=== PATIENT | male | born 1935 | race Caucasian/White ===

== ENCOUNTER 2017-02-28 07:32 | Day surgery (SDC) | payer OTHER ==
[~2017-02-28] VITALS: Ht 171.4 cm; Wt 85.0 kg
[2017-02-28] VITALS (7 sets, daily range): BP systolic 154–179; BP diastolic 69–83; PULSE 55–72; RESP 17–19; TEMP 97.4–98.2; O2SAT 92–97
[~2017-02-28 07:32] MED LIST: AMLO5TAB22 PO; BENA40TA PO; CO Q100C9 PO; DOXA1 PO; FOLI5CAP PO; GLUCTAB PO; HYDR25TA35 PO; LEVO100T4 PO; OCUVTAB4 PO; POTA10TA2 PO; SIMV20 PO; TAB-TAB PO; VITATAB11 PO
[2017-02-28] MEDS ORDERED: METF1000 PO (07:49)
[2017-02-28] MEDS ORDERED: LABE300T PO (07:49)
[2017-02-28] MEDS ORDERED: HYDR-3799 PO (07:50)
[2017-02-28] MEDS ORDERED: SODIUM CHLOR 0.9% 1000 ML INJ 1,000 ML IV SCH (08:00)
[2017-02-28 08:17] LABS: AUTOMATED NEUTROPHIL # 3.3 TH/MM3 (1.8-7.7); BASOPHIL % 0.3 % (0.0-2.0); EOSINOPHIL # 0.2 TH/MM3 (0-0.4); HEMATOCRIT 37.9 % (39.0-51.0); HEMO FLAGS DIFF FINAL; LYMPH % 19.8 % (9.0-44.0); MEAN CELL VOLUME 84.2 FL (80.0-100.0); MEAN CORPUSCULAR HEMOGLOBIN 28.3 PG (27.0-34.0); MEAN CORPUSCULAR HGB CONC 33.6 % (32.0-36.0); MONO % 9.3 % (0.0-8.0); NEUT % 66.6 % (16.0-70.0); PLATELET COUNT 194 TH/MM3 (150-450); RED CELL DISTRIBUTION WIDTH 15.4 % (11.6-17.2); WHITE BLOOD COUNT 4.9 TH/MM3 (4.0-11.0)
[2017-02-28] MEDS ORDERED: BENA40TA PO (08:18)
[2017-02-28] MEDS ORDERED: AMLO5TAB2 PO (08:19)
[2017-02-28] MEDS ORDERED: LEVO100T5 PO (08:20)
[2017-02-28] MEDS ORDERED: HYDR25TA5 PO (08:20)
[2017-02-28] MEDS ORDERED: SIMV20TA PO (08:21)
[2017-02-28] MEDS ORDERED: DOXA1TAB34 PO (08:21)
[2017-02-28] MEDS ORDERED: RANI300T PO (08:22)
[2017-02-28] MEDS ORDERED: FOLI800T PO (08:23)
[2017-02-28] MEDS ORDERED: POTA10CA PO (08:24)
[2017-02-28] MEDS ORDERED: MULTTAB67 PO (08:25)
[2017-02-28] MEDS ORDERED: CO Q100C9 PO (08:26)
[2017-02-28] MEDS ORDERED: OCUVTAB4 PO (08:27)
[2017-02-28] MEDS ORDERED: CHOL1TAB42 PO (08:29)
[2017-02-28] MEDS ORDERED: VITA10002 PO (08:30)
[2017-02-28] MEDS ORDERED: CLAR10CA3 PO (08:31)
[2017-02-28] MEDS ORDERED: LIDOCAINE 1%/EPINEPHrine 1:100,000 SOLN 20 ML VIAL ONE (09:06)
[2017-02-28] MEDS ORDERED: MIDAZOLAM HCL 2 MG/2 ML VIAL ONE ×2 (09:27→09:29)
[2017-02-28] MEDS ORDERED: fentaNYL CITRATE 250 MCG/5 ML AMP ONE (09:27)
[2017-02-28] MEDS ORDERED: SODIUM CHLORIDE 0.9% FLUSH 10 ML FLUSH IV FLUSH PRN (09:30)
--- NOTE | 2017-02-28 12:42 | RADRPT ---
EXAM DATE/TIME: 02/28/2017 09:44 [facility] COMPARISON: No previous studies available for comparison. INDICATIONS : Right lung mass SEDATION TIME: 15 minutes BIOPSY SITE: Right lung MEDICATION(S): 1.) 2 mg midazolam (Versed) IV 2.) 100 mcg fentanyl (Sublimaze) IV DEVICE(S): 1.) 18 gauge Arrington blunt needle 2.) 20 gauge Temno core biopsy needle MEDICAL HISTORY : Diabetes mellitus type 2. Carcinoma, lung. Melanoma SURGICAL HISTORY : Lobectomy. ENCOUNTER: Initial ACUITY: 1 day PAIN SCORE: 0/10 LOCATION: Right chest A total of three core specimen(s) were obtained and sent to the laboratory for pathologic evaluation. PROCEDURE: 1. CT guided lung biopsy. Prior to the procedure informed consent was obtained. Any appropriate prior imaging studies were rev iewed. Using automated exposure control and adjustment of the mA and/or kV according to patient size, radiation dose was kept as low as reasonably achievable to obtain optimal diagnostic quality images. DICOM format image data is available electronically for review and comparison. The site was prepped in a sterile fashion. Full sterile technique was used, including cap, mask, kong rile gloves and gown and a large sterile sheet. Hand hygiene and 2% chlorhexidine and/or betadine/al cohol prep was utilized per protocol for cutaneous antisepsis. The skin and subcutaneous tissues wer e infiltrated with local anesthetic solution. Under CT guidance an 18 gauge blunt needle was placed down into the PET positive area right lung. 3 cores were obtained. 2 slides were submitted. Follow-up CT scan reveals no pneumothorax. Conscious sedation was performed with the prescribed dosages and duration as above in the presence of an independent trained radiology nurse to assist in the monitoring of the patient. EKG and oximetry remained stable throughout the procedure. The patient tolerated the procedure well and there were no complications. The patient was sent to Radiology Outpatient Unit in stable condition. CONCLUSION: Uncomplicated CT guided biopsy. Weston Esparza MD FACR on February 28, 2017 at 12:38 Board Certified Radiologist. This report was verified electronically.
--- NOTE | 2017-02-28 13:35 | RADRPT ---
EXAM DATE/TIME: 02/28/2017 12:47 [facility] COMPARISON: No previous studies available for comparison. INDICATIONS : Status post right lung biopsy. MEDICAL HISTORY : Carcinoma, lung. SURGICAL HISTORY : Right lung surgery, lobectomy for lung CA. Port placed. ENCOUNTER: Initial ACUITY: 1 day PAIN SCORE: 0/10 LOCATION: Right chest FINDINGS: There is no pneumothorax. Side changes and fluid remaining in the right base. The left lung is judy r. The heart is minimally enlarged. CONCLUSION: There is no pneumothorax following biopsy. Weston Esparza MD FACR on February 28, 2017 at 13:32 Board Certified Radiologist. This report was verified electronically.
== END 2017-02-28 14:20 | disposition home or self-care (01) ==
LOC: HRAD 07:32 → HRIP 07:32 → HRAD 14:20
PROVIDERS: ATTEND Internal Medicine Hematology & Oncology
DX: R91.8 Other nonspecific abnormal finding of lung field (principal); E11.9 Type 2 diabetes mellitus without complications; Z85.118 Personal history of other malignant neoplasm of bronchus and lung
CPT/HCPCS: 32405; 71010; 77012; 85025; 87015; 87070; 87102; 87116; 87205; 87206; 88305; 88333; J2250; J3010; J7030

== ENCOUNTER 2017-03-09 07:36 | Day surgery (SDC) | payer OTHER ==
[~2017-03-09] VITALS: Ht 176.5 cm; Wt 86.4 kg
[2017-03-09] VITALS (7 sets, daily range): BP systolic 170–185; BP diastolic 75–87; PULSE 63–72; RESP 17–19; TEMP 97.8–98.3; O2SAT 93–94
[~2017-03-09 07:36] MED LIST changes: +AMLO5TAB2 PO; -AMLO5TAB22 PO; +CHOL1TAB42 PO; +CLAR10CA3 PO; -DOXA1 PO; +DOXA1TAB34 PO; -FOLI5CAP PO; +FOLI800T PO; -GLUCTAB PO; +HYDR-3799 PO; -HYDR25TA35 PO; +HYDR25TA5 PO; +LABE300T PO; -LEVO100T4 PO; +LEVO100T5 PO; +METF1000 PO; +MULTTAB67 PO; +POTA10CA PO; -POTA10TA2 PO; +RANI300T PO; -SIMV20 PO; +SIMV20TA PO; -TAB-TAB PO; +VITA10002 PO
[2017-03-09] MEDS ORDERED: SODIUM CHLOR 0.9% 1000 ML IV SCH (08:00)
[2017-03-09] MEDS ORDERED: IMPLANTED VASCULAR ACCESS DEVICE/PORT - SODIUM CHLORIDE FLUSH IV FLUSH SCH (08:00)
[2017-03-09] MEDS ORDERED: IMPLANTED VASCULAR ACCESS DEVICE/PORT - SODIUM CHLORIDE FLUSH PRN IV FLUSH (08:00)
[2017-03-09] MEDS ORDERED: MELO-1 PO (08:01)
[2017-03-09] MEDS ORDERED: MONT10TA4 PO (08:01)
[2017-03-09] MEDS ORDERED: VITA10002 PO (08:01)
[2017-03-09] MEDS ORDERED: ASPI81CH CHEW (08:01)
[2017-03-09] MEDS ORDERED: LIDOCAINE HCL 1% 20 ML VIAL ONE (08:08)
[2017-03-09 08:30] LABS: APTT (PATIENT) 28.8 SEC (24.3-30.1); INTERNATIONAL NORMALIZED RATIO 0.9 RATIO; PROTHROMBIN TIME - PATIENT 10.1 SEC (9.8-11.6)
[2017-03-09] MEDS ORDERED: MIDAZOLAM HCL 2 MG/2 ML VIAL ONE (08:41)
--- NOTE | 2017-03-09 10:43 | RADRPT ---
EXAM DATE/TIME: 03/09/2017 08:52 [facility] COMPARISON: CT NEEDLE BIOPSY LUNG, RIGHT, February 28, 2017, 9:44. INDICATIONS : Right lung mass. SEDATION TIME: 30 minutes BIOPSY SITE: Right chest. MEDICATION(S): 1.) 1.5 mg midazolam (Versed) IV 2.) 50 mcg fentanyl (Sublimaze) IV DEVICE(S): 1.) 18 gauge Arrington blunt needle 2.) 20 gauge Temno core biopsy needle MEDICAL HISTORY : Chronic obstructive pulmonary disease. Hypothyroidism. Diabetes mellitus type 2. GERD, BPH, Prostate cancer, HTN, esophageal stricture. SURGICAL HISTORY : Lobectomy. TURP. ENCOUNTER: Initial ACUITY: 1 day PAIN SCORE: 0/10 LOCATION: Right chest A total of eight core specimen(s) were obtained and sent to the laboratory for pathologic evaluation. PROCEDURE: 1. CT guided lung biopsy. Prior to the procedure informed consent was obtained. Any appropriate prior imaging studies were rev iewed. Using automated exposure control and adjustment of the mA and/or kV according to patient size, radiation dose was kept as low as reasonably achievable to obtain optimal diagnostic quality images. DICOM format image data is available electronically for review and comparison. The site was prepped in a sterile fashion. Full sterile technique was used, including cap, mask, kong rile gloves and gown and a large sterile sheet. Hand hygiene and 2% chlorhexidine and/or betadine/al cohol prep was utilized per protocol for cutaneous antisepsis. The skin and subcutaneous tissues wer e infiltrated with local anesthetic solution. Under CT guidance 18 gauge blunt was placed into the consolidative lung on the right. 8 cores were o btained from multiple areas. Material was submitted for pathology and culture. Follow-up CT scan reveals no pneumothorax. Conscious sedation was performed with the prescribed dosages and duration as above in the presence of an independent trained radiology nurse to assist in the monitoring of the patient. EKG and oximetry remained stable throughout the procedure. The patient tolerated the procedure well and there were no complications. The patient was sent to Radiology Outpatient Unit in stable condition. CONCLUSION: Uncomplicated CT guided biopsy. Preliminary pathology interpretation is a cellular specimen. Weston Esparza MD FACR on March 09, 2017 at 10:41 Board Certified Radiologist. This report was verified electronically.
--- NOTE | 2017-03-09 11:25 | RADRPT ---
EXAM DATE/TIME: 03/09/2017 11:11 [facility] COMPARISON: CHEST EXPIRATION ONLY, February 28, 2017, 12:47. INDICATIONS : Post right side bx. MEDICAL HISTORY : lung ca 2011 SURGICAL HISTORY : right lung surgery, partial removal ENCOUNTER: Initial ACUITY: 1 day PAIN SCORE: 0/10 LOCATION: Right chest FINDINGS: There is a right-sided pleural effusion. The [id number] is in satisfactory position. No pneumothor ax is seen. The left lung is clear. There are surgical clips within the axilla bilaterally. CONCLUSION: 1. No pneumothorax identified following biopsy. Alec Esparza MD on March 09, 2017 at 11:23 Board Certified Radiologist. This report was verified electronically.
== END 2017-03-09 12:52 | disposition home or self-care (01) ==
LOC: HRAD 07:36 → HRIP 07:37 → HRAD 12:52
PROVIDERS: ATTEND Internal Medicine Hematology & Oncology
DX: C34.91 Malignant neoplasm of unspecified part of right bronchus or lung (principal); J44.9 Chronic obstructive pulmonary disease, unspecified; E03.9 Hypothyroidism, unspecified; E11.9 Type 2 diabetes mellitus without complications; N40.0 Benign prostatic hyperplasia without lower urinary tract symptoms; K21.9 Gastro-esophageal reflux disease without esophagitis; I10 Essential (primary) hypertension; Z85.46 Personal history of malignant neoplasm of prostate; Z79.84 Long term (current) use of oral hypoglycemic drugs; Z79.82 Long term (current) use of aspirin; Z79.899 Other long term (current) drug therapy
CPT/HCPCS: 32405; 71010; 77012; 81235; 85610; 85730; 87015; 87070; 87102; 87116; 87176; 87205; 87206; 88305; 88333; 88341; 88342; 88360; 88377; 88381; J2250; J3010; J7030